=== PATIENT | male | born 1985 | race Caucasian/White ===

== ENCOUNTER 2023-11-14 13:35 | Emergency (ER) | payer OTHER, MEDICAID ==
[~2023-11-14] VITALS: Ht 185.4 cm; Wt 92.5 kg
[2023-11-14 13:46] VITALS: BP_SYST 138; PULSE 92; RESP 20; TEMP 98.2; O2SAT 99
[2023-11-14] MEDS ORDERED: TIZA-321 PO (15:36)
[2023-11-14 15:43] VITALS: BP_SYST 129; PULSE 81; RESP 17; TEMP 98.2; O2SAT 99
== END 2023-11-14 15:42 | disposition home or self-care (01) ==
LOC: SED 13:35
DX: S16.1XXA Strain of muscle, fascia and tendon at neck level, initial encounter (principal); K21.9 Gastro-esophageal reflux disease without esophagitis; Z79.899 Other long term (current) drug therapy; V89.2XXA Person injured in unspecified motor-vehicle accident, traffic, initial encounter; Y93.89 Activity, other specified; Y92.89 Other specified places as the place of occurrence of the external cause; Y99.8 Other external cause status
CPT/HCPCS: 72040-TC; 99283

== ENCOUNTER 2023-12-18 15:50 | Emergency (ER) | payer MEDICAID, OTHER ==
[~2023-12-18] VITALS: Ht 185.4 cm; Wt 90.7 kg
[~2023-12-18 15:50] MED LIST: TIZA-321 PO
[2023-12-18 16:10] VITALS: BP_SYST 131; PULSE 82; RESP 18; TEMP 98.1; O2SAT 100
[2023-12-18] MEDS ORDERED: CARB15DR93 EACH EAR (16:36)
[2023-12-18] MEDS ORDERED: AMOX250C PO (16:36)
[2023-12-18 17:19] VITALS: BP_SYST 131; PULSE 82; RESP 18; TEMP 98.1; O2SAT 100
== END 2023-12-18 17:00 | disposition home or self-care (01) ==
LOC: SED 15:50
DX: H61.21 Impacted cerumen, right ear (principal); K21.9 Gastro-esophageal reflux disease without esophagitis; M10.9 Gout, unspecified; Z79.899 Other long term (current) drug therapy
CPT/HCPCS: 99283